=== PATIENT | male | born 1975 | race Caucasian/White ===

== ENCOUNTER 2019-08-31 12:12 | Outpatient (CLI) | payer OTHER, SELFPAY ==
--- NOTE | ~2019-08-31 | CT_ITS ---
EXAMINATION: CT abdomen pelvis wo con DATE: 08/31/2019 13:58 INDICATION: Microscopic hematuria TECHNIQUE: Computed tomography (CT) of the abdomen and pelvis was performed without intravenous contr ast. Automated exposure control and iterative reconstruction technique were employed. Exam dose: 104 0.34 mGy-cm total exam DLP. COMPARISON: None. FINDINGS: The lung bases are clear of infiltrate or consolidation. Normal heart size. No pericardial or pleural effusion. There is diffuse hepatic steatosis. No hepatic, splenic, pancreatic, and adrenal or renal space-occup michael mass lesion is evident. The gallbladder is present. No bile duct or pancreatic duct dilatation. No urinary tract calculus or hydroureteronephrosis. Normal caliber of the abdominal aorta. No intraperitoneal or retroperitoneal or pelvic mass lesion or adenopathy or ascites. The urinary bladder is largely evacuated. Seminal vesicles and prostate gland are unremarkable. No bowel obstruction, bowel wall thickening, pneumatosis or intraperitoneal free air is evident. Small fat-containing right inguinal hernia. Small fat-containing umbilical hernia. Bilateral L5 pars interarticularis defects with associated grade 1 anterolisthesis at L5-S1. There is severe degenerative disc disease at L5-S1. Mild retrolisthesis at L4-5. No suspicious osteolytic or osteoblastic lesions are noted. IMPRESSION: Hepatic steatosis Bilateral L5 pars interarticularis defects with associated grade 1 anterolisthesis at L5-S1 Severe degenerative disc disease at L5-S1 Reviewed, dictated and finalized at [facility]. Reviewed, dictated and finalized at [facility]. IMPRESSION: Hepatic steatosis Bilateral L5 pars interarticularis defects with associated grade 1 anterolisthe sis at L5-S1 Severe degenerative disc disease at L5-S1
== END 2019-08-31 12:13 | disposition home or self-care (01) ==
LOC: CHSIMG 12:15
PROVIDERS: PCP Internal Medicine; Visit Provider Internal Medicine
DX: R31.29 Other microscopic hematuria (principal)
CPT/HCPCS: 74176